=== PATIENT | male | born 1980 | race Caucasian/White ===

== ENCOUNTER → 2016-12-01 | Outpatient (CLI) | payer OTHER ==
[~2016-12-01] VITALS: Ht 182.9 cm; Wt 87.7 kg
[~2016-12-01] MED LIST: ALEVE220 MG PO; CELEXA 10 MG TA10 M1 PO; CELEXA10 M1 PO; HYDROCODON-ACE1 EAC5 PO; HYDROCODON-ACE1 EAC8 PO; MEDROLDOSEPACK PO; MELATONIN10 M1 PO; MELATONIN3 MG PO; MELATONIN5 M1 PO; MOBIC15 MG PO; Melatonin PO; NEURONTIN 300300 M1 PO
--- NOTE | ~2016-12-01 | HPC ---
[facility] [address] [place] [address] PAIN MANAGEMENT CONSULTATION Name: LEDY MEJIA Room #: [facility].#: [id number] Admission: 12/01/16 Attend Phys: Fransisco Montalvo MD Discharge: Date of : 80 Report #: [id number] THIS REPORT FOR: //name// CC: Marquez Leon MD [facility] physician/PCP Fransisco Perea MD DATE OF SERVICE: 12/01/2016 FOLLOWUP COMPLAINT: Things are going pretty well and I would like to have my medicines renewed. Still having pain in the back. FOLLOWUP HISTORY: The patient is a 36-year-old gentleman who has been followed in the pain clinic because of lumbar radicular pain. He has undergone epidural steroid injections in the past and gleaned benefits from these. He continues to have pain and discomfort, which limits his ability to engage in activities of daily living. He rates it as an 8/10. Standing, sitting and the weather have exacerbated his discomfort. He continues to stretch and take medications. On a personal note, his divorce would be finalized in the future. After that, he would like to undergo another injection. He has no insurance at this juncture and finds it financially to undergo an epidural steroid injection at this juncture. PHYSICAL EXAMINATION: Blood pressure is 152/91, pulse 70, respiratory rate 14, room air saturation 98%. Height 6 feet, weight 87 kilograms. BMI is 26. The patient continues to have pain and discomfort radiating down into his low back and involves the L4-L5 dermatomal distribution. IMPRESSION: 1. History of lumbar radiculopathy, stable with exacerbations. The patient is undergoing a divorce and is unable to undergo an injection at this juncture secondary to his insurance coverage. He will consider another injection in the future once he gets established with his insurance again. 2. Chronic myofascial pain in the back as well. The patient continues to use nonsteroidal anti-inflammatory medications for this. RECOMMENDATIONS: We will continue with the patient's current use of Cando one p.o. t.i.d. He will call us if he has any problems with his medications. [facility] [address] [place] [address] PAIN MANAGEMENT CONSULTATION Name: LEDY MEJIA ZAINAB Room #: [facility].#: [id number] Admission: 12/01/16 Attend Phys: Fransisco Montalvo MD Discharge: Date of : 80 Report #: [id number] We would like to thank you for letting us participate in his care. We hope he continues to do well. By: [id number] Fransisco Montalvo MD /nt
[2016-12-01 09:38] VITALS: BP 152/91
== END | disposition home or self-care (01) ==
LOC: PAIN 06:49
DX: M54.16 Radiculopathy, lumbar region (principal); M79.1 Myalgia; G89.29 Other chronic pain